=== PATIENT | female | born 1985 | race Caucasian/White ===

== ENCOUNTER 2016-12-01 21:00 | Emergency (ER) | payer OTHER ==
[~2016-12-01] VITALS: Ht 165.1 cm; Wt 101.6 kg
[~2016-12-01 21:00] MED LIST: BACLOFEN10 MG PO; FLEXERIL5 MG PO; NAPROSYN500 MG PO; NOHOMEMEDS; NORCO 5/3251 TABLET PO
[2016-12-01 22:15] VITALS: BP 124/68
== END 2016-12-01 22:16 | disposition home or self-care (01) ==
LOC: EME 21:00
DX: R51 Headache (principal); M54.2 Cervicalgia; Y04.8XXA Assault by other bodily force, initial encounter; Y07.59 Other non-family member, perpetrator of maltreatment and neglect; F17.200 Nicotine dependence, unspecified, uncomplicated
CPT/HCPCS: 99281; 99284

== ENCOUNTER 2017-03-09 12:28 | Emergency (ER) | payer OTHER ==
[~2017-03-09] VITALS: Ht 165.1 cm; Wt 102.7 kg
[2017-03-09 13:59] LABS: EOSINOPHIL (%) 2.3 % (0-5); EOSINOPHIL COUNT 0.2 K/uL (0-0.3); HEMATOCRIT 39.4 % (36.0-46.0); IMMATURE GRANULOCYTE (%) 0.4 % (0.0-0.7); INSTRUMENT ABS NEUTROPHIL CT 4.3 K/uL; LYMPHOCYTE COUNT 2.9 K/uL (1.0-2.8); MCH 29.1 PG (29.0-34.0); MCV 88.3 FL (83-99); MEAN PLAT.VOLUME 9.5 uM^3 (9.5-12.4); MONOCYTE (%) 10.5 % (3-12); MONOCYTE COUNT 0.9 K/uL (0-0.8); NEUTROPHIL (%) 51.6 % (45-76); NEUTROPHIL COUNT 4.3 K/uL (1.8-6.4); PLATELET COUNT 252 K/uL (156-360); RBC DIS.WIDTH-CV 13.3 % (11.8-14.6); RBC DIS.WIDTH-SD 43.4 % (39-53); RED BLOOD COUNT 4.46 M/uL (3.80-5.20); WHITE BLOOD COUNT 8.3 K/uL (4.1-10.2)
[2017-03-09 14:09] LABS: CHLORIDE 107 mEq/L (99-109); POTASSIUM 3.8 mEq/L (3.7-5.4); SODIUM 139 mEq/L (136-147)
[2017-03-09 14:10] LABS: GLUCOSE 76 mg/dL (70-99)
[2017-03-09 14:12] LABS: ANION GAP 7 MEQ/L (2-14)
[2017-03-09 14:14] LABS: GFR ESTIMATE (CALCULATED) > 59 mL/min/
[2017-03-09 14:15] LABS: UREA NITROGEN (BUN) 12 mg/dL (9-23)
[2017-03-09 14:23] LABS: QUANTITATIVE HCG < 4.0 MIU/ML
[2017-03-09] MEDS ORDERED: KEPPRA500 MG PO (14:46)
[2017-03-09 15:14] VITALS: BP 104/64
== END 2017-03-09 15:15 | disposition home or self-care (01) ==
LOC: EME 12:28
PROVIDERS: Emergency Medicine
DX: R56.9 Unspecified convulsions (principal); R51 Headache; R42 Dizziness and giddiness; F17.200 Nicotine dependence, unspecified, uncomplicated
CPT/HCPCS: 80048; 84702; 85025; 99281; 99285

== ENCOUNTER 2018-03-29 12:48 | Emergency (ER) | payer OTHER ==
[~2018-03-29] VITALS: Ht 160 cm; Wt 101.0 kg
[~2018-03-29 12:48] MED LIST changes: +KEPPRA500 MG PO
[2018-03-29 13:23] LABS: APPEARANCE CLEAR ((CLEAR)); BILIRUBIN NEGATIVE; BLOOD MODERATE; COLOR YELLOW ((YELLOW)); GLUCOSE (STRIP) NEGATIVE; KETONES NEGATIVE; LEUKOCYTES TRACE; NITRITE NEGATIVE; PROTEIN (STRIP) NEGATIVE; SPECIFIC GRAVITY 1.024 (1.000-1.030)
[2018-03-29 13:28] LABS: BACTERIA RARE /HPF; EPITHELIAL CELLS RARE /HPF; HYALINE CASTS 0-5 /LPF; MUCUS 3+ /LPF; UCUL ADDED? NO; WHITE BLOOD CELLS 0-5 /HPF (0-5)
[2018-03-29 13:42] LABS: HEMATOCRIT 37.9 % (36.0-46.0); HEMOGLOBIN 12.8 G/DL (11.9-15.5); MCHC 33.8 G/DL (30.0-36.0); PLATELET COUNT 245 K/uL (156-360); RBC DIS.WIDTH-CV 14.3 % (11.8-14.6); RED BLOOD COUNT 4.26 M/uL (3.80-5.20); WHITE BLOOD COUNT 8.3 K/uL (4.1-10.2)
[2018-03-29 13:52] LABS: CHLORIDE 109 mEq/L (99-109); POTASSIUM 4.1 mEq/L (3.7-5.4); SODIUM 137 mEq/L (136-147)
[2018-03-29 13:54] LABS: GLUCOSE 94 mg/dL (70-99)
[2018-03-29 13:56] LABS: TOTAL BILIRUBIN 0.3 mg/dL (0.0-1.0)
[2018-03-29 13:58] LABS: ALKALINE PHOSPHATASE 52 IU/L (3-129); CREATININE 0.8 mg/dL (0.6-1.3); GFR ESTIMATE (CALCULATED) > 59 mL/min/
[2018-03-29 13:59] LABS: UREA NITROGEN (BUN) 12 mg/dL (9-23)
[2018-03-29 14:00] LABS: AST (GOT) 16 IU/L (2-34)
[2018-03-29 14:01] LABS: ALT (GPT) 12 IU/L (3-49)
[2018-03-29 14:02] LABS: LIPASE 14 U/L (1.0-51.0)
[2018-03-29 14:09] LABS: QUANTITATIVE HCG < 4.0 MIU/ML
[2018-03-29] MEDS ORDERED: IBU800 MG PO (16:21)
[2018-03-29] MEDS ORDERED: FLEXERIL10 MG PO (16:21)
[2018-03-29 16:30] VITALS: BP 118/69
== END 2018-03-29 16:32 | disposition home or self-care (01) ==
LOC: EME 12:48
PROVIDERS: Physician Assistant
DX: R10.9 Unspecified abdominal pain (principal); R31.29 Other microscopic hematuria; Z91.040 Latex allergy status; F17.200 Nicotine dependence, unspecified, uncomplicated
CPT/HCPCS: 74176; 80048; 80053; 81003; 83690; 84702; 85027; 99281; 99285; J3010; J7030